=== PATIENT | female | born 1995 | race Caucasian/White ===

== ENCOUNTER → 2016-07-19 | Outpatient (REF) | payer OTHER ==
[~2016-07-19] MED LIST: ACET50TA PO; FLINCHW9 PO; IBUP-1114 PO
== END ==
LOC: M SFHCLERA 17:21
PROVIDERS: ATTEND Nurse Practitioner Family
DX: R35.0 Frequency of micturition (principal)

== ENCOUNTER → 2017-08-08 | Outpatient (REF) | payer OTHER ==
[2017-08-08 22:04] LABS: INFLUENZA A AMPLIFICATION NEGATIVE (NEGATIVE); INFLUENZA B AMPLIFICATION POSITIVE (NEGATIVE)
== END ==
LOC: M LAB REF 21:17
DX: R50.9 Fever, unspecified (principal)

== ENCOUNTER → 2017-08-15 | Outpatient (REF) | payer OTHER ==
[2017-08-15 18:09] LABS: HEMATOCRIT 38.8 % (36.0-47.0); HEMOGLOBIN 12.8 g/dl (12.0-16.0); MEAN CORPUSCULAR HEMOGLOBIN 26.8 pg (27.0-33.0); MEAN CORPUSCULAR VOLUME 81.3 fl (80.0-96.0); PLATELET COUNT, AUTOMATED 316 10^3/uL (150-450); RED BLOOD COUNT 4.77 10^6/uL (4.00-5.40); RED CELL DISTRIBUTION WIDTH 14.3 % (11.5-14.5)
[2017-08-15 19:08] LABS: HCG, SERUM QUANTITATIVE 277 MIU/ML
[2017-08-15 19:48] LABS: CHLAMYDIA DNA AMPLIFICATION NEGATIVE (NEGATIVE); GC DNA AMPLIFICATION NEGATIVE (NEGATIVE)
[2017-08-17 11:23] LABS: RUBELLA IgG QUALITATIVE IMMUNE (IMMUNE)
[2017-08-17 11:39] LABS: HEPATITIS B SURFACE ANTIGEN NEGATIVE (NEGATIVE)
[2017-08-17 11:51] LABS: HEPATITIS C VIRUS ABY INDEX 0.1 INDEX (<0.8)
[2017-08-17 11:53] LABS: HIV 1&2 SCREEN CENTAUR NEGATIVE (NEGATIVE)
== END ==
LOC: M LAB REF 17:08
DX: O36.80X0 Pregnancy with inconclusive fetal viability, not applicable or unspecified (principal)
CPT/HCPCS: 86762

== ENCOUNTER → 2017-08-17 | Outpatient (REF) | payer OTHER ==
[2017-08-17 13:52] LABS: HCG, SERUM QUANTITATIVE 254 MIU/ML
== END ==
LOC: M LAB REF 12:52
DX: O20.0 Threatened abortion (principal); Z3A.00 Weeks of gestation of pregnancy not specified

== ENCOUNTER → 2017-08-31 | Outpatient (REF) | payer OTHER ==
[2017-08-31 13:32] LABS: HCG, SERUM QUANTITATIVE 114 MIU/ML
== END ==
LOC: M LAB REF 12:54
DX: O03.9 Complete or unspecified spontaneous abortion without complication (principal)

== ENCOUNTER → 2017-09-07 | Outpatient (REF) | payer OTHER ==
[2017-09-07 14:41] LABS: HCG, SERUM QUANTITATIVE 60 MIU/ML
== END ==
LOC: M LAB REF 13:22
DX: O03.9 Complete or unspecified spontaneous abortion without complication (principal)

== ENCOUNTER → 2017-09-17 | Outpatient (REF) | payer OTHER ==
[2017-09-17 14:05] LABS: HCG, SERUM QUANTITATIVE 19 MIU/ML
== END ==
LOC: M LAB REF 13:09
DX: O03.9 Complete or unspecified spontaneous abortion without complication (principal)

== ENCOUNTER → 2017-09-28 | Outpatient (REF) | payer OTHER ==
[2017-09-28 13:43] LABS: HCG, SERUM QUANTITATIVE 2 MIU/ML
== END ==
LOC: M LAB REF 12:59
DX: O03.9 Complete or unspecified spontaneous abortion without complication (principal)
CPT/HCPCS: 84702

== ENCOUNTER → 2018-03-05 | Outpatient (REF) | payer OTHER ==
[2018-03-05 13:55] LABS: HEMATOCRIT 37.9 % (36.0-47.0); HEMOGLOBIN 12.7 g/dl (12.0-15.5); MEAN CORPUSCULAR HEMOGLOBIN 27.1 pg (27.0-33.0); MEAN CORPUSCULAR HGB CONC 33.5 g/dl (32.0-36.5); MEAN CORPUSCULAR VOLUME 80.8 fl (80.0-96.0); PLATELET COUNT, AUTOMATED 254 10^3/uL (150-450); RED BLOOD COUNT 4.69 10^6/uL (4.00-5.40); WHITE BLOOD COUNT 6.9 10^3/uL (4.0-10.0)
[2018-03-05 14:34] LABS: HCG, SERUM QUANTITATIVE 68188 MIU/ML
[2018-03-06 10:22] LABS: RUBELLA IgG QUALITATIVE IMMUNE (IMMUNE)
[2018-03-06 10:23] LABS: HBsAg Prenatal NEGATIVE (NEGATIVE)
[2018-03-06 10:50] LABS: HEPATITIS C VIRUS ABY INDEX < 0.0 INDEX (<0.8)
[2018-03-06 10:51] LABS: HIV 1&2 SCREEN CENTAUR NEGATIVE (NEGATIVE)
== END ==
LOC: M LAB REF 13:07
DX: O36.80X0 Pregnancy with inconclusive fetal viability, not applicable or unspecified (principal); Z3A.00 Weeks of gestation of pregnancy not specified

== ENCOUNTER → 2018-07-09 | Outpatient (CLI) | payer OTHER ==
[~2018-07-09] MED LIST changes: -ACET50TA PO; +MAPA500T2 PO
[2018-07-09 16:22] LABS: HEMATOCRIT 30.9 % (36.0-47.0); HEMOGLOBIN 10.1 g/dl (12.0-15.5); MEAN CORPUSCULAR HEMOGLOBIN 26.9 pg (27.0-33.0); MEAN CORPUSCULAR HGB CONC 32.7 g/dl (32.0-36.5); MEAN CORPUSCULAR VOLUME 82.4 fl (80.0-96.0); PLATELET COUNT, AUTOMATED 253 10^3/uL (150-450); RED BLOOD COUNT 3.75 10^6/uL (4.00-5.40); WHITE BLOOD COUNT 9.4 10^3/uL (4.0-10.0)
== END ==
LOC: M LAB 14:34
PROVIDERS: ATTEND Obstetrics & Gynecology
DX: Z34.81 Encounter for supervision of other normal pregnancy, first trimester (principal); Z36.89 Encounter for other specified antenatal screening

== ENCOUNTER → 2018-07-26 | Outpatient (REF) | payer OTHER ==
[2018-07-26 22:12] LABS: INFLUENZA A AMPLIFICATION POSITIVE (NEGATIVE); INFLUENZA B AMPLIFICATION NEGATIVE (NEGATIVE)
== END ==
LOC: M LAB REF 11:42
PROVIDERS: ATTEND Physician Assistant Medical
DX: J11.1 Influenza due to unidentified influenza virus with other respiratory manifestations (principal)

== ENCOUNTER → 2018-08-20 | Outpatient (REF) | payer OTHER | LOC: M LAB REF 12:30 | PROVIDERS: ATTEND Obstetrics & Gynecology | DX: Z34.83 Encounter for supervision of other normal pregnancy, third trimester (principal); Z36.85 Encounter for antenatal screening for Streptococcus B ==

== ENCOUNTER 2018-09-21 08:54 | Inpatient (IN) | payer OTHER ==
[2018-09-21] VITALS (31 sets, daily range): BP systolic 82–124; BP diastolic 46–66
[~2018-09-21] VITALS: Ht 157.5 cm; Wt 86.2 kg
[2018-09-21] MEDS ORDERED: LR 1,000 ML IV SCH (09:48)
[2018-09-21] MEDS ORDERED: LACTATED RINGER'S 1000 ML IV STA (09:48)
[2018-09-21 10:21] LABS: HEMATOCRIT 30.3 % (36.0-47.0); HEMOGLOBIN 9.5 g/dl (12.0-15.5); MEAN CORPUSCULAR HEMOGLOBIN 24.3 pg (27.0-33.0); MEAN CORPUSCULAR HGB CONC 31.4 g/dl (32.0-36.5); MEAN CORPUSCULAR VOLUME 77.5 fl (80.0-96.0); PLATELET COUNT, AUTOMATED 265 10^3/uL (150-450); RED BLOOD COUNT 3.91 10^6/uL (4.00-5.40); WHITE BLOOD COUNT 6.7 10^3/uL (4.0-10.0)
--- NOTE | 2018-09-21 10:49 | HPE ---
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 She denies vaginal bleeding. There is good movement. The contractions have increased in intensity. COURSE: The patient's care was through Dr. Bethea at [facility]. course is unremarkable. OBSTETRICAL HISTORY: In 2014, vaginal delivery of a 5 pounds 11 ounce female infant, no complications. She did have a seizure following that delivery but no subsequent seizures. In January 2016, vaginal delivery at 39 weeks, 8 pounds 3 ounce female infant. No complications. MEDICAL HISTORY: 1. seizure after her first delivery in 2014. No further seizure activity. She takes no seizure medications. SURGICAL HISTORY: None. ALLERGIES: None. SOCIAL HISTORY: The patient denies cigarettes, alcohol or drug use. FAMILY HISTORY: Noncontributory. PHYSICAL EXAMINATION: Blood pressure 107/65, pulse 65. GENERAL: She appears mildly uncomfortable. HEAD/NECK: Exam is normal. LUNGS: Clear. HEART: Regular rate and rhythm. ABDOMEN: Nontender, gravid. heart tones are category 1. Sterile vaginal examination: 4 cm, 100% effaced, -1, intact, vertex. EXTREMITIES: Nontender. LABORATORIES: Blood type is O positive, rubella immune, RPR nonreactive. Hepatitis B and C negative. Group B streptococcus (GBS) negative. ASSESSMENT: 23-year-old 3, para 2 female at 40 and 0/7 weeks gestation who presents in active labor. PLAN: The patient is admitted on 09/21/2018.
[2018-09-21] MEDS ORDERED: FENTANYL 2MCG/ML ROPIVACAINE 0.2% IN 0.9% NACL 100ML IVBAG As Ordered ONE (11:11)
--- NOTE | 2018-09-21 12:05 | NUR ---
Progress note S: doesn't feel different O: AVSS NAD Abd: NT SSE: cx closed, three laminaria and one sponge placed ext: NT A/P 23 yo At 24 5/7 weeks with IUFD Laminaria placed as mentioned above Pt received one dose of Misoprostol Due for next dose at 1330 Omeprazole for nausea associated with GERD Hu Thompson MD
--- NOTE | 2018-09-21 12:08 | NUR ---
Progress note addendum: The previous note timed at 1205 was charted on the wrong patient. Please disregard previous note. Hu Thompson MD
[2018-09-21] MEDS ORDERED: diphenhydrAMINE INJ 50MG/ML VIAL (J1200) IV PRN (13:00)
[2018-09-21] MEDS ORDERED: ePHEDrine SULFATE 25 MG/5 ML(5MG/ML) SYRINGE IV PRN (13:00)
[2018-09-21] MEDS ORDERED: NALOXONE INJ 0.4 MG/1 ML VIAL (J2310) IV PRN (13:00)
[2018-09-21] MEDS ORDERED: FENTANYL/ROPIVACAINE/NACL BAG 100 ML EPIDURAL SCH (13:00)
[2018-09-21] MEDS ORDERED: EPIDURAL COMMENT XX SCH (13:00)
[2018-09-21] MEDS ORDERED: LACTATED RINGER'S 1000 ML IV PRN (13:00)
[2018-09-21] MEDS ORDERED: EPIDURAL/PCA KEYS XX PRN (13:00)
[2018-09-21] MEDS ORDERED: REFRIGERATOR IV KEYS XX PRN (13:00)
[2018-09-21] MEDS ORDERED: ONDANSETRON 4MG/2ML VIAL (J2405) IV PRN ×2 (13:00→14:30)
[2018-09-21] MEDS ORDERED: OXYTOCIN 30 UNITS IN 0.9% NaCl 500ML IV BAG (J2590) As Ordered ONE (13:39)
[2018-09-21] MEDS ORDERED: MEASLES,MUMPS,RUBELLA VACCINE INJ (MMR-II) (90707) SC SCH (14:30)
[2018-09-21] MEDS ORDERED: METHYLERGONOVINE MALEATE 0.2 MG TAB PO PRN (14:30)
[2018-09-21] MEDS ORDERED: ACETAMINOPHEN 500 MG TAB PO PRN (14:30)
[2018-09-21] MEDS ORDERED: RHOGAM 300 MCG (1500 IU) INJ (J2790) IM SCH (14:30)
[2018-09-21] MEDS ORDERED: DOCUSATE SODIUM 100 MG CAP PO PRN (14:30)
[2018-09-21] MEDS ORDERED: IBUPROFEN 800 MG TAB PO PRN (14:30)
[2018-09-21] MEDS ORDERED: OXYTOCIN DRIP 30 UNITS in APPROPRIATE DILUENT 1 EA IV ONE (14:30)
[2018-09-21] MEDS ORDERED: DIBUCAINE 1% OINTMENT 30GM TOP PRN (14:30)
[2018-09-22 06:00] VITALS: BP 109/54
[2018-09-22] MEDS: PRENATAL VITAMINS CHEWABLE TABLET PO SCH (08:06)
[2018-09-22] MEDS ORDERED: MAPA500T2 PO (09:01)
[2018-09-22] MEDS ORDERED: ADVI100T PO (09:03)
[2018-09-22] MEDS ORDERED: PRENTAB9 PO (09:03)
--- NOTE | 2018-09-22 14:49 | DN ---
DATE OF DELIVERY: 09/21/2018 PREDELIVERY DIAGNOSIS: 40 weeks gestation, labor. POSTDELIVERY DIAGNOSIS: Delivered. PROCEDURE: Spontaneous vaginal delivery. DISPOSITION CLERK: Hu Thompson MD ANESTHESIA: Epidural. ESTIMATED BLOOD LOSS: 300 mL. FINDINGS: 7 pound 15 ounce female, 3600 grams, scores 6 and 9. DELIVERY SUMMARY: After a 15 minute second stage, the patient had spontaneous delivery of a 7 pound 15 ounce female with scores 6 and 9 under epidural anesthesia. Nuchal cord times one was clamped and cut on the perineum. The shoulders delivered with ease. The infant was handed to the mother. The cord was doubly clamped and cut. The placenta delivered spontaneously and appeared to be intact. The patient received IV Pitocin immediately after delivery of the placenta. First-degree perineal laceration did not require repair. Sponge counts were correct.
[2018-09-22 18:33] VITALS: BP 107/56
[2018-09-23 06:00] VITALS: BP 111/56
[2018-09-23] MEDS: PRENATAL VITAMINS CHEWABLE TABLET PO SCH (08:17)
== END 2018-09-23 11:45 | disposition home or self-care (01) | DRG 560 ==
LOC: M LDO 08:54 → M LDI 09:32 → M OBS 16:40
PROVIDERS: ADMIT Specialist; ATTEND Specialist
PROC: 10E0XZZ Delivery of Products of Conception, External Approach (ICD-10-PCS; principal; 2018-09-21)
DX: O48.0 Post-term pregnancy (principal); Z37.0 Single live birth; Z3A.40 40 weeks gestation of pregnancy; O69.82X0 Labor and delivery complicated by other cord entanglement, without compression, not applicable or unspecified

== ENCOUNTER → 2019-07-30 | Outpatient (REF) | payer OTHER, MEDICAID ==
[~2019-07-30] MED LIST changes: +ADVI100T PO; +PRENTAB9 PO
[2019-07-30 14:25] LABS: HEMOGLOBIN 12.5 g/dl (12.0-15.5); MEAN CORPUSCULAR HEMOGLOBIN 25.7 pg (27.0-33.0); MEAN CORPUSCULAR HGB CONC 32.1 g/dl (32.0-36.5); MEAN CORPUSCULAR VOLUME 80.1 fl (80.0-96.0); PLATELET COUNT, AUTOMATED 304 10^3/uL (150-450); RED BLOOD COUNT 4.87 10^6/uL (4.00-5.40); WHITE BLOOD COUNT 7.1 10^3/uL (4.0-10.0)
[2019-07-30 14:32] LABS: ALBUMIN 3.6 GM/DL (3.2-5.2); ALT/SGPT 21 U/L (12-78); BILIRUBIN,DIRECT < 0.1 MG/DL (0.0-0.2); BILIRUBIN,TOTAL 0.2 MG/DL (0.2-1.0); CHOLESTEROL LEVEL 197 MG/DL (<200); CHOLESTEROL RISK RATIO 3.788 (<5); HDL CHOLESTEROL 52 MG/DL (>40); LDL CHOLESTEROL 119 MG/DL (<100); NON-HDL-C 145 MG/DL; TRIGLYCERIDES LEVEL 129 MG/DL (<150)
== END ==
LOC: M LABDRAW1 10:44
PROVIDERS: ATTEND Dermatology
DX: Z79.899 Other long term (current) drug therapy (principal)

== ENCOUNTER → 2019-10-02 | Outpatient (CLI) | payer OTHER, MEDICAID ==
[2019-10-02 14:15] LABS: ALBUMIN 3.7 GM/DL (3.2-5.2); ALT/SGPT 25 U/L (12-78); BILIRUBIN,DIRECT < 0.1 MG/DL (0.0-0.2); BILIRUBIN,TOTAL 0.3 MG/DL (0.2-1.0); CHOLESTEROL LEVEL 221 MG/DL (<200); HDL CHOLESTEROL 52 MG/DL (>40); LDL CHOLESTEROL 139 MG/DL (<100); NON-HDL-C 169 MG/DL; TOTAL PROTEIN 7.1 GM/DL (6.4-8.2); TRIGLYCERIDES LEVEL 150 MG/DL (<150)
== END ==
LOC: M LAB 13:24
PROVIDERS: ATTEND Dermatology
DX: Z79.899 Other long term (current) drug therapy (principal)

== ENCOUNTER → 2020-09-23 | Outpatient (REF) | payer OTHER, MEDICAID | LOC: M LAB REF 16:28 | PROVIDERS: ATTEND Advanced Practice Midwife | DX: N91.1 Secondary amenorrhea (principal) ==

== ENCOUNTER → 2020-12-04 | Outpatient (CLI) | payer OTHER ==
--- NOTE | 2020-12-04 19:35 | REP ---
INDICATION: OTHER DYSPHAGIA. COMPARISON: None. TECHNIQUE: An AP and 2 lateral views were provided. FINDINGS: AP view shows no torticollis. There is no midline shift of the trachea by anterior neck mass/mass effect. The nasopharynx, vivian and hypopharynx were all unremarkable. No prevertebral swelling. Thyroid cartilage calcifications noted and unremarkable. Epiglottis and its folds are intact. Bony cervical spine was unremarkable. No radiographically visible foreign body, mass or mass effect in the soft tissues of the throat by plain film. IMPRESSION: Negative soft tissue neck series for any acute finding. <Electronically signed by Marciano Hurley > 12/04/201931
== END ==
LOC: M RAD 15:05
DX: R13.19 Other dysphagia (principal)

== ENCOUNTER 2024-01-11 16:11 | Emergency (ER) | payer OTHER ==
[~2024-01-11] VITALS: Ht 154.9 cm; Wt 95.7 kg
[2024-01-11 16:12] VITALS: TEMP 97.1
[2024-01-11] MEDS: KETOROLAC 30 MG/ML 1ML VIAL IV ONE (19:43)
[2024-01-11 19:52] LABS: BASO % 0.3 % (0.0-1.0); EOS # 0.1 10^3/uL (0.0-0.5); EOS % 0.6 % (0.0-3.0); HEMATOCRIT 43.8 % (36.0-47.0); HEMOGLOBIN 14.6 g/dl (12.0-15.5); LYMPH # 3.9 10^3/uL (1.5-5.0); LYMPH % 25.9 % (24.0-44.0); MEAN CORPUSCULAR HEMOGLOBIN 27.9 pg (27.0-33.0); MEAN CORPUSCULAR HGB CONC 33.3 g/dl (32.0-36.5); MEAN CORPUSCULAR VOLUME 83.7 fl (80.0-96.0); MONO # 1.7 10^3/uL (0.0-0.8); NEUTROPHILS # 9.2 10^3/uL (1.5-8.5); NEUTROPHILS % 61.4 % (36.0-66.0); PLATELET COUNT, AUTOMATED 337 10^3/uL (150-450); RED BLOOD COUNT 5.23 10^6/uL (4.00-5.40)
[2024-01-11 20:12] LABS: BLOOD UREA NITROGEN 11 MG/DL (9-23); CALCIUM LEVEL 9.5 MG/DL (8.5-10.1); CARBON DIOXIDE LEVEL 29 MMOL/L (20-31); CHLORIDE LEVEL 102 MMOL/L (98-107); CREATININE FOR GFR 0.75 MG/DL (0.55-1.30); GLOMERULAR FILTRATION RATE > 60.0 (>60); GLUCOSE, FASTING 89 MG/DL (60-100); POTASSIUM SERUM 3.6 MMOL/L (3.5-5.1); SODIUM LEVEL 137 MMOL/L (136-145)
[2024-01-11] MEDS: traMADol 50 MG TAB PO ONE (20:41)
[2024-01-11] MEDS: ACETAMINOPHEN 325 MG TAB PO ONE (20:42)
[2024-01-11] MEDS: LIDOCAINE 5% (LIDODERM) PATCH TD ONE (20:43)
[2024-01-12 01:07] VITALS: BP 135/82; O2SAT 99
== END 2024-01-12 01:36 | disposition short-term general hospital (02) ==
LOC: M ED 16:11
DX: S32.039A Unspecified fracture of third lumbar vertebra, initial encounter for closed fracture (principal); R55 Syncope and collapse; X58.XXXA Exposure to other specified factors, initial encounter
CPT/HCPCS: 72131; 80048; 83735; 85025; 93005; 96374; 99285; J1885